=== PATIENT | female | born 1990 | race Caucasian/White ===

== ENCOUNTER 2020-03-07 12:22 | Emergency (ER) | payer BC ==
[2020-03-07] MEDS ORDERED: Sodium Chloride 0.9% 1,000 ML IV ONE (12:28)
[2020-03-07] MEDS ORDERED: Ondansetron 4 MG/2 ML SDV IVPUSH ONE (13:01)
--- NOTE | 2020-03-07 13:13 | EDM.PDOC ---
ED HPI GENERAL MEDICAL PROBLEM - General Chief Complaint: NEEDLE STRAIGHTENER Problem Stated Complaint: NAUSEOUS CAN'T KEEP FOOD DOWN Time Seen by Provider: 03/07/20 12:26 Source of Information: Reports: Patient History Limitations: Reports: No Limitations - History of Present Illness INITIAL COMMENTS - FREE TEXT/NARRATIVE: HISTORY AND PHYSICAL: History of present illness: Patient is a 29-year-old female who presents to the emergency room with complaints of nausea and vomiting in first trimester . Patient states over the past several days she has not been able to keep any food or liquids down and is concerned she may be dehydrated. She did call her NEEDLE STRAIGHTENER who recommended she come into the emergency room for evaluation and treatment. She is a 2, para 0 -previous miscarriage at 9 weeks gestation. Patient denies any fever, chills, headache, change in vision, syncope or near syncope. Denies any chest pain, back pain, shortness of breath or cough. Denies any abdo michael pain, diarrhea, constipation or dysuria. Denies any vaginal bleeding, discharge or concerns of STIs. Has not noted any blood in urine or stool. Patient has been eating and drinking appropriately. Patient does report she has a history of a "vomiting issue" and has seen a GI specialist in the past. Reports she has taken many antinausea medications without much relief and "the only thing that is worked for me in the past is medical marijuana". At this time she is not taking/smoking the marijuana and would prefer to retry some of the safe options. Review of systems: As per history of present illness and below otherwise all systems reviewed and negative. Past medical history: As per history of present illness and as reviewed below otherwise noncontributory. Surgical history: As per history of present illness and as reviewed below otherwise noncontributory. Social history: See social history for further information Family history: As per history of present illness and as reviewed below otherwise noncontributory. Physical exam: General: Well developed and well nourished. Alert and orientated x 3. Nontoxic in appearance and in no acute distress. Vital signs are stable and have been reviewed by me. Nursing notes were reviewed. HEENT: Atraumatic, normocephalic, pupils equal and reactive bilaterally, negative for conjunctival pallor or scleral icterus, mucous membranes moist, TMs normal bilaterally, throat clear, neck supple, nontender, trachea midline. No drooling or trismus noted. No meningeal signs. No hot potato voice noted. Lungs: Clear to auscultation, breath sounds equal bilaterally, chest nontender. Normal work of breathing, no accessory muscles used. Heart: S1S2, regular rate and rhythm without overt murmur Abdomen: Soft, nondistended, nontender. Negative for masses or hepatosplenomegaly. Negative for costovertebral tenderness. Pelvis: Stable nontender. Skin: Intact, warm, dry. No lesions or rashes noted. Hematologic: No petechiae or purpra. Mucosa appropriate color and normal nail bed color and refill. Extremities: Atraumatic, moves all extremities per self without difficulty or deficits, negative for cords or calf pain. Neurovascular unremarkable. Neuro: Awake, alert, oriented. Cranial nerves II through XII unremarkable. Cerebellum unremarkable. Motor and sensory unremarkable throughout. Exam nonfocal. Psychiatric: Mood and affect are appropriate. Normal thought process. Answering questions appropriately. Notes: Ultrasound shows a single live IUP with gestational age of 9 weeks 1 day. No free fluid in the pelvis. Patient does have a leukocytosis without source. Patient denies having any abdominal pain, flank pain or pelvic discomfort. My physical exam is within normal limits. She is aware of having an elevated white count and to continue monitoring for any symptoms that would prompt her to return for further investigation of this. Patient has been able to keep down fluids and would like a prescription for the ODT Zofran for home. She was supposed to see her NEEDLE STRAIGHTENER today but they moved her appointment till Tuesday, she will be reevaluated at that time. The patient is stable for discharge, counseling was provided and we discussed in great detail signs and symptoms that would prompt them to return to the Emergency Department. Medication, follow up and supportive care measures were reviewed and discussed. Voices understanding and is agreeable to plan of care. Denies any further questions or concerns at this time. Diagnostics: CBC, CMP, UA, quantitative hCG, OB ultrasound Therapeutics: IV fluid, Zofran Prescription: Zofran Impression: Hyperemesis Plan: 1. Please start and/or continue to take your vitamin with folic acid once daily. 2. You can use the Zofran as needed for nausea management. 3. Tylenol as needed for pain management. 4. Follow up with your NEEDLE STRAIGHTENER in the next 1-2 days. Return to the ED as needed and as discussed. Definitive disposition and diagnosis as appropriate pending reevaluation and review of above. - Related Data Allergies Allergy/AdvReac Type Severity Reaction Status Date / Time No Known Allergies Allergy Verified 03/07/20 12:57 Home Meds: Home Meds Doxylamine Succinate [Unisom] 25 mg PO DAILY 03/07/20 [History] Ondansetron [Zofran ODT] 4 mg PO Q6H PRN #30 tab.dis 03/07/20 [Rx] Pnv No.95/Ferrous Fum/Folic AC [ Caplet] 1 tab PO DAILY 03/07/20 [History] Vitamin B6-pyridOXINE 100 mg PO DAILY 03/07/20 [History] Past Medical History Other NEEDLE STRAIGHTENER History: miscarriage, beast augmentation Psychiatric History: Reports: Anxiety, Depression - Past Surgical History HEENT Surgical History: Reports: Other (See Below) Other HEENT Surgeries/Procedures: wisdom teeth removal Social & Family History - Family History Family Medical History: No Pertinent Family History - Caffeine Use Caffeine Use: Reports: Tea - Recreational Drug Use Recreational Drug Type: Reports: Other (see below) Other Recreational Drug Type: THC ED ROS GENERAL - Review of Systems Review Of Systems: Comprehensive ROS is negative, except as noted in HPI. ED EXAM - Physical Exam Exam: See Below (See dictation) Course - Vital Signs Last Recorded V/S: Last Vital Signs Temp 98.1 F 03/07/20 13:01 Pulse 90 03/07/20 13:01 Resp 18 03/07/20 13:01 BP 129/75 03/07/20 13:01 Pulse Ox 100 03/07/20 13:01 - Orders/Labs/Meds Orders: Active Orders 24 hr Category Date Time Status COMPREHENSIVE METABOLIC PN,CMP [CHEM] Stat Lab 03/07/20 13:24 Received HCG QUANTITATIVE [CHEM] Stat Lab 03/07/20 13:24 Received Labs: Laboratory Tests 03/07/20 03/07/20 03/07/20 Range/Units 12:50 13:24 14:00 WBC 16.42 H (4.0-11.0) K/uL RBC 4.66 (4.30-5.90) M/uL Hgb 14.5 (12.0-16.0) g/dL Hct 42.9 (36.0-46.0) % MCV 92.1 (80.0-98.0) fL MCH 31.1 (27.0-32.0) pg MCHC 33.8 (31.0-37.0) g/dL RDW Std Deviation 48.7 (28.0-62.0) fl RDW Coeff of Solo 15 (11.0-15.0) % Plt Count 308 (150-400) K/uL MPV 8.80 (7.40-12.00) fL Neut % (Auto) 89.4 H (48.0-80.0) % Lymph % (Auto) 7.1 L (16.0-40.0) % Collier % (Auto) 3.4 (0.0-15.0) % Eos % (Auto) 0.0 (0.0-7.0) % Baso % (Auto) 0.1 (0.0-1.5) % Neut # (Auto) 14.7 H (1.4-5.7) K/uL Lymph # (Auto) 1.2 (0.6-2.4) K/uL Collier # (Auto) 0.6 (0.0-0.8) K/uL Eos # (Auto) 0.0 (0.0-0.7) K/uL Baso # (Auto) 0.0 (0.0-0.1) K/uL Nucleated RBC % 0.0 /100WBC Nucleated RBCs # 0 K/uL Lactate 1.7 (0.20-2.00) mmol/L Urine Color YELLOW Urine Appearance CLEAR Urine pH 7.0 (5.0-8.0) Ur Specific Penfield 1.015 (1.001-1.035) Urine Protein NEGATIVE (NEGATIVE) mg/dL Urine Glucose (UA) NEGATIVE (NEGATIVE) mg/dL Urine Ketones >=80 (NEGATIVE) mg/dL Urine Occult Blood SMALL H (NEGATIVE) Urine Nitrite NEGATIVE (NEGATIVE) Urine Bilirubin NEGATIVE (NEGATIVE) Urine Urobilinogen 0.2 (<2.0) EU/dL Ur Leukocyte Esterase NEGATIVE (NEGATIVE) Urine RBC 1-3 (0-2/HPF) Urine WBC 0-1 (0-5/HPF) Ur Epithelial Cells RARE (NONE-FEW) Urine Bacteria FEW (NEGATIVE) Meds: Medications Discontinued Medications Generic Name Dose Route Start Last Admin Trade Name Freq PRN Reason Stop Dose Admin Sodium Chloride 1,000 mls @ 999 mls/hr 03/07/20 12:28 03/07/20 13:23 Normal Saline IV 03/07/20 13:28 999 mls/hr STAT ONE Administration Ondansetron HCl 4 mg 03/07/20 13:01 03/07/20 13:23 Zofran IVPUSH 03/07/20 13:02 4 mg ONETIME ONE Administration Departure - Departure Time of Disposition: 14:20 Disposition: Home, Self-Care 01 Clinical Impression: Hyperemesis gravidarum - Discharge Information Prescriptions: Ondansetron [Zofran ODT] 4 mg PO Q6H PRN #30 tab.dis PRN Reason: Nausea Instructions: Morning Sickness, [id number] Referrals: Cristina Fatima MD [Primary Care Provider] - Forms: ED Department Discharge Additional Instructions: The following information is given to patients seen in the emergency department who are being discharged to home. This information is to outline your options for follow-up care. We provide all patients seen in our emergency department with a follow-up referral. The need for follow-up, as well as the timing and circumstances, are variable depending upon the specifics of your emergency department visit. If you don't have a primary care physician on staff, we will provide you with a referral. We always advise you to contact your personal physician following an emergency department visit to inform them of the circumstance of the visit and f or follow-up with them and/or the need for any referrals to a consulting specialist. The emergency department will also refer you to a specialist when appropriate. This referral assures that you have the opportunity for follow-up care with a specialist. All of these measure are taken in an effort to provide you with optimal care, which includes your follow-up. Under all circumstances we always encourage you to contact your private physician who remains a resource for coordinating your care. When calling for follow-up care, please make the office aware that this follow-up is from your recent emergency room visit. If for any reason you are refused follow-up, please contact the [facility] Emergency Department at and asked to speak to the emergency department charge nurse. [facility] Primary [facility] [address] [place] [address] [facility] [address] [place] [address] Thank you for choosing the [facility] emergency department in [place] for your medical needs today. It was a pleasure caring for you. Today you were seen in the emergency department for nausea and vomiting in . 1. Please start and/or continue to take your vitamin with folic acid once daily. 2. You can use the Zofran as needed for nausea management. 3. Tylenol as needed for pain management. 4. Follow up with your NEEDLE STRAIGHTENER in the next few days. Return to the ED as needed and as discussed. Sepsis Event Note (ED) - Evaluation Sepsis Screening Result: No Definite Risk - Focused Exam Vital Signs: Vital Signs Temp Pulse Resp BP Pulse Ox 03/07/20 13:01 98.1 F 90 18 129/75 100 - My Orders Last 24 Hours: My Active Orders 03/07/20 13:24 COMPREHENSIVE METABOLIC PN,CMP [CHEM] Stat HCG QUANTITATIVE [CHEM] Stat - Assessment/Plan Last 24 Hours: My Active Orders 03/07/20 13:24 COMPREHENSIVE METABOLIC PN,CMP [CHEM] Stat HCG QUANTITATIVE [CHEM] Stat
--- NOTE | 2020-03-07 13:19 | US ---
HISTORY: Vomiting. Early . TECHNIQUE: Ultrasound of the pelvis using transabdominal technique. COMPARISON: None. FINDINGS: Single intrauterine gestational sac. Mean gestational sac diameter of 4.1 cm corresponds to estimated gestational age 9 weeks 6 days. pole is present. Terlton-rump length 24 mm corresponds to estimated gestational age 9 weeks 1 day. cardiac activity is present with heart rate 172 beats per minute. No perigestational fluid collection. Right ovary measures 3.4 x 2 x 2.9 cm. Normal appearance of the right ovary. Blood flow present the right ovary. Left ovary measures 1.2 x 2 x 1.9 cm. Normal appearance of the left ovary. Blood flow present in the left ovary. No free fluid in the pelvis. IMPRESSION: Single live intrauterine gestation with estimated gestational age of 9 weeks 1 day. Dictated by Don Little MD @ Mar 07 2020 1:11PM Signed by Dr. Don Little @ Mar 07 2020 1:18PM
[2020-03-07 14:20] LABS: BLOOD UREA NITROGEN,BUN 6 mg/dL (7.0-18.0); CARBON DIOXIDE,CO2 22.6 mmol/L (21.0-32.0); CHLORIDE,CL 99 mmol/L (98-107); GLUCOSE RANDOM 86 mg/dL (74-106); POTASSIUM,K 3.4 mmol/L (3.5-5.1); SODIUM,NA 135 mmol/L (136-145)
== END 2020-03-07 15:08 | disposition home or self-care (01) ==
LOC: MW.ED 12:22
DX: O21.0 Mild hyperemesis gravidarum (principal); O99.111 Other diseases of the blood and blood-forming organs and certain disorders involving the immune mechanism complicating pregnancy, first trimester; D72.829 Elevated white blood cell count, unspecified; Z3A.09 9 weeks gestation of pregnancy
CPT/HCPCS: 36415; 76801; 80053; 81001; 83605; 84702; 85025; 96374; 99284; J2405; J7030; 99283

== ENCOUNTER 2020-10-13 05:14 | Inpatient (IN) | payer BC ==
[2020-10-13] MEDS ORDERED: Butorphanol 1 MG/ML SDV IVPUSH PRN (05:42)
[2020-10-13] MEDS ORDERED: Water For Irrigation,Sterile 1,000 ML Container IRR PRN (05:42)
[2020-10-13] MEDS ORDERED: Sodium Chloride 0.9% 10 ML SDV IV PRN (05:42)
[2020-10-13] MEDS ORDERED: Sodium Chloride 0.9% 10 ML Syringe FLUSH PRN (05:42)
[2020-10-13] MEDS ORDERED: Sodium Chloride 0.9% 2.5 ML Syringe FLUSH PRN (05:42)
[2020-10-13] MEDS ORDERED: Lidocaine 1% 50 ML MDV INJECT PRN (05:42)
[2020-10-13] MEDS ORDERED: Methylergonovine 0.2 MG/1 ML Amp IM PRN (05:42)
[2020-10-13] MEDS ORDERED: Misoprostol 200 MCG Tab PO PRN (05:42)
[2020-10-13] MEDS ORDERED: Carboprost Tromethamine 250 MCG/1 ML Amp IM PRN (05:42)
[2020-10-13] MEDS ORDERED: Tranexamic Acid 1,000 MG in Sodium Chloride 0.9% 100 ML IV PRN (05:42)
[2020-10-13] MEDS ORDERED: Nalbuphine 10 MG/1 ML Vial IVPUSH PRN (05:42)
[2020-10-13] MEDS ORDERED: Oxytocin/0.9 % Sodium Chloride 30 UNIT/500 ML BAG IV SCH (05:45)
[2020-10-13] MEDS ORDERED: Lactated Ringers 1,000 ML IV SCH (05:45)
--- NOTE | 2020-10-13 07:05 | PCM.LDHP ---
L&D History of Present Illness - General Date of Service: 10/13/20 Admit Problem/Dx: Patient Status Order with Admit Dx/Problem 10/13/20 05:42 Patient Status [ADT] Routine Admission Diagnosis/Problem Admission Diagnosis/Problem Source of Information: Patient - History of Present Illness Introduction:: 30yo at 40w3d presenting with labor and SROM. Patient had gush of clear fluid around midnight and started having regular contractions. She is tolerating contractions well. GBS negative. was complicated with GDMA1 that is well controlled with diet. She had serial growth US with appropriate growth, last US measured 48th percentile. Pain Score: 8 - Related Data Allergies/Adverse Reactions: Allergies Allergy/AdvReac Type Severity Reaction Status Date / Time No Known Allergies Allergy Verified 03/07/20 12:57 Home Medications: Home Meds Doxylamine Succinate [Unisom] 25 mg PO DAILY 03/07/20 [History] Ondansetron [Zofran ODT] 4 mg PO Q6H PRN #30 tab.dis 03/07/20 [Rx] Pnv No.95/Ferrous Fum/Folic AC [ Caplet] 1 tab PO DAILY 03/07/20 [History] Vitamin B6-pyridOXINE 100 mg PO DAILY 03/07/20 [History] Past Medical History Other OB/BYN History: miscarriage, breast augmentation Psychiatric History: Reports: Anxiety, Depression Immunologic History: Reports: None - Past Surgical History HEENT Surgical History: Reports: Other (See Below) Other HEENT Surgeries/Procedures: wisdom teeth removal Social & Family History - Family History Family Medical History: No Pertinent Family History - Tobacco Use Tobacco Use Status *Q: Never Tobacco User - Caffeine Use Caffeine Use: Reports: None - Recreational Drug Use Drug Use in Last 12 Months: No H&P Review of Systems - Review of Systems: Review Of Systems: See Below General: Reports: No Symptoms HEENT: Reports: No Symptoms Pulmonary: Reports: No Symptoms Cardiovascular: Reports: No Symptoms Gastrointestinal: Reports: Other (contractions) Genitourinary: Reports: Other (membrane ruptured) Musculoskeletal: Reports: No Symptoms Skin: Reports: No Symptoms Psychiatric: Reports: No Symptoms Neurological: Reports: No Symptoms Hematologic/Lymphatic: Reports: No Symptoms Immunologic: Reports: No Symptoms L&D Exam - Exam Exam: See Below (+ accels, no decels) - Vital Signs Weight: 190 lb - OB Specific Contraction Frequency (min): 2-3min Contraction Intensity: Moderate to Strong Movement: Active Heart Tones: Present Heart Tones per Min: 150 Heart Rate (FHR) Variability: Moderate (6-25 bmp) - Exam General: Alert, Oriented, Cooperative HEENT: Conjunctiva Clear, EACs Clear, EOMI Neck: Supple, Trachea Midline Lungs: Normal Respiratory Effort GI/Abdominal Exam: Soft, Non-Tender, No Distention Genitourinary: Normal external exam, Cervical dilitation (8cm dilated per patient nurse) Back Exam: Normal Inspection, Full Range of Motion Extremities: Normal Inspection, Normal Range of Motion, Non-Tender, No Pedal Edema Skin: Warm, Dry, Intact Neurological: Cranial Nerves Intact Psychiatric: Alert, Normal Affect, Normal Mood - Patient Data Lab Results Last 24 hrs: Laboratory Results - last 24 hr 10/13/20 10/13/20 10/13/20 Range/Units 05:45 05:45 05:45 WBC 12.13 H (4.0-11.0) K/uL RBC 4.27 L (4.30-5.90) M/uL Hgb 13.0 (12.0-16.0) g/dL Hct 38.5 (36.0-46.0) % MCV 90.2 (80.0-98.0) fL MCH 30.4 (27.0-32.0) pg MCHC 33.8 (31.0-37.0) g/dL RDW Std Deviation 46.7 (28.0-62.0) fl RDW Coeff of Solo 14 (11.0-15.0) % Plt Count 230 (150-400) K/uL MPV 10.90 (7.40-12.00) fL Nucleated RBC % 0.0 /100WBC Nucleated RBCs # 0 K/uL Glucose 85 (74-106) mg/dL SARS-CoV-2 RNA (SELMA) NEGATIVE (NEGATIVE) Result Diagrams: 10/13/20 05:45 - Problem List (1) Active labor at term SNOMED Code(s): 18236118 ICD Code: [id number] - Status: Acute Current Visit: Yes Problem List Initiated/Reviewed/Updated: Yes Orders Last 24hrs: Active Orders 24 hr Category Date Time Status Patient Status [ADT] Routine ADT 10/13/20 05:42 Active Heart Tones [RC] CONTINUOUS Care 10/13/20 05:42 Active Non Stress Test [RC] PER UNIT ROUTINE Care 10/13/20 05:42 Active May Shower [RC] ASDIRECTED Care 10/13/20 05:42 Active Notify Provider [RC] PRN Care 10/13/20 05:42 Active Up ad Carline [RC] ASDIRECTED Care 10/13/20 05:42 Active Vaginal Exam [RC] PRN Care 10/13/20 05:42 Active Vital Signs [RC] PER UNIT ROUTINE Care 10/13/20 05:42 Active RPR (SYPHILIS SERO) W/ RFLX [REF] Routine Lab 10/13/20 05:45 Received TYPE AND SCREEN [BBK] Routine Lab 10/13/20 05:45 Received Butorphanol [Stadol] Med 10/13/20 05:42 Active 1 mg IVPUSH Q1H PRN Carboprost Tromethamine [Hemabate DS] Med 10/13/20 05:42 Active 250 mcg IM ASDIRECTED PRN Lactated Ringers [Ringers, Lactated] 1,000 ml Med 10/13/20 05:45 Active IV ASDIRECTED Lidocaine 1% [Xylocaine 1%] Med 10/13/20 05:42 Active 50 ml INJECT ONETIME PRN Methylergonovine [Methergine] Med 10/13/20 05:42 Active 0.2 mg IM ASDIRECTED PRN Nalbuphine [Nubain] Med 10/13/20 05:42 Active 10 mg IVPUSH Q1H PRN Oxytocin/0.9 % Sodium Chloride [Oxytocin 30 Unit/500 ML Med 10/13/20 05:45 Active -NS] 30 unit in 500 ml IV TITRATE Sodium Chloride 0.9% [Normal Saline] Med 10/13/20 05:42 Active 10 ml IV ASDIRECTED PRN Sodium Chloride 0.9% [Saline Flush] Med 10/13/20 05:42 Active 10 ml FLUSH ASDIRECTED PRN Sodium Chloride 0.9% [Saline Flush] Med 10/13/20 05:42 Active 2.5 ml FLUSH ASDIRECTED PRN Tranexamic Acid [Cyklokapron] 1,000 mg Med 10/13/20 05:42 Active Sodium Chloride 0.9% [Normal Saline] 100 ml IV ONETIME Water For Irrigation,Sterile [Sterile Water for Med 10/13/20 05:42 Active Irrigation] 1,000 ml IRR ASDIRECTED PRN miSOPROStoL [Cytotec] Med 10/13/20 05:42 Active 200 mcg PO ONETIME PRN Scalp Electrode [WOMSER] Per Unit Routine Oth 10/13/20 05:42 Ordered Peripheral IV Insertion Adult [OM.PC] Routine Oth 10/13/20 05:42 Ordered Resuscitation Status Routine Resus Stat 10/13/20 05:42 Ordered Medication Orders Butorphanol Tartrate (Butorphanol 1 Mg/Ml Sdv) 1 mg IVPUSH Q1H PRN PRN Reason: Pain (severe 7-10) Carboprost Tromethamine (Carboprost Tromethamine 250 Mcg/1 Ml Amp) 250 mcg IM ASDIRECTED PRN PRN Reason: Post Hemorrhage Oxytocin/Sodium Chloride (Oxytocin 30 Unit/500 Ml-Ns) 30 unit in 500 mls @ 999 mls/hr IV TITRATE [facility] Tranexamic Acid 1,000 mg/ (Sodium Chloride) 110 mls @ 660 mls/hr IV ONETIME PRN PRN Reason: Bleeding Lactated Ringer's (Ringers, Lactated) 1,000 mls @ 150 mls/hr IV ASDIRECTED ASHLEY Last Admin: 10/13/20 06:25 Dose: 150 mls/hr Documented by: ISABEL Lidocaine HCl (Lidocaine 1% 50 Ml Mdv) 50 ml INJECT ONETIME PRN PRN Reason: Laceration repair Methylergonovine Maleate (Methylergonovine 0.2 Mg/1 Ml Amp) 0.2 mg IM ASDIRECTED PRN PRN Reason: Post Hemorrhage Misoprostol (Misoprostol 200 Mcg Tab) 200 mcg PO ONETIME PRN PRN Reason: Post Hemorrhage Nalbuphine HCl (Nalbuphine 10 Mg/1 Ml Vial) 10 mg IVPUSH Q1H PRN PRN Reason: Pain (severe 7-10) Last Admin: 10/13/20 06:25 Dose: 10 mg Documented by: ISABEL Sodium Chloride (Sodium Chloride 0.9% 10 Ml Syringe) 10 ml FLUSH ASDIRECTED PRN PRN Reason: Keep Vein Open Sodium Chloride (Sodium Chloride 0.9% 2.5 Ml Syringe) 2.5 ml FLUSH ASDIRECTED PRN PRN Reason: Keep Vein Open Sodium Chloride (Sodium Chloride 0.9% 10 Ml Sdv) 10 ml IV ASDIRECTED PRN PRN Reason: IV Use Sterile Water (Water For Irrigation,Sterile 1,000 Ml Container) 1,000 ml IRR ASDIRECTED PRN PRN Reason: delivery Assessment/Plan Comment:: 30yo at 40w3d presenting with active labor. Reassuring maternal and status. - admission labs, CBC, RPR, T&S, COVID19 test - GDMA1, blood glucose sent - category 1 tracing - GBS negative - received nubain for pain, declines epidural Anticipate vaginal delivery.
[2020-10-13] MEDS ORDERED: Docusate Sodium 100 MG Cap PO PRN (09:06)
[2020-10-13] MEDS ORDERED: Witch Hazel Medicated Pads 40/Jar TOP PRN (09:06)
[2020-10-13] MEDS ORDERED: Bisacodyl 10 MG Supp RECTAL PRN (09:06)
[2020-10-13] MEDS ORDERED: Measles, Mumps & Rubella Vaccine 0.5 ML SDV SUBCUT ONE (09:06)
[2020-10-13] MEDS ORDERED: oxyCODONE 5 MG Tab PO PRN (09:06)
[2020-10-13] MEDS ORDERED: Lanolin 100% Cream 7 GM Tube TOP PRN (09:06)
[2020-10-13] MEDS ORDERED: Benzocaine/Menthol 20%-0.5% Spray 78 GM Cannister TOP PRN (09:06)
--- NOTE | 2020-10-13 09:12 | PCM.DEL ---
L & D Note - General Info Date of Service: 10/13/20 Mother's Due Date: 10/10/20 - Delivery Note Labor: Spontaneous Delivery Outcome: Livebirth Infant Delivery Method: Spontaneous Vaginal Delivery-Single Presentation: Vertex Nuchal Cord: None Anesthesia Type: Local Anesthetic: Lidocaine (Xylocaine) 1% Plain Amniotic Fluid Description: Clear Episiotomy Type: None Laceration: 2nd Degree, Periurethral (bilateral) Suture type: Vicryl Suture size: 2-0 Placenta: Intact, Spontaneous Cord: 3 Vessels Estimated Blood Loss: 300 Resuscitation Needed: No Score 1 min: 8 Score 5 min: 9 Delivery Comments (Free Text/Narrative):: Live male infant - General Info Date of Service: 10/13/20 - Patient Data Weight - Most Recent: 86.183 kg Lab Results Last 24 Hours: Laboratory Results - last 24 hr 10/13/20 10/13/20 10/13/20 Range/Units 05:45 05:45 05:45 WBC 12.13 H (4.0-11.0) K/uL RBC 4.27 L (4.30-5.90) M/uL Hgb 13.0 (12.0-16.0) g/dL Hct 38.5 (36.0-46.0) % MCV 90.2 (80.0-98.0) fL MCH 30.4 (27.0-32.0) pg MCHC 33.8 (31.0-37.0) g/dL RDW Std Deviation 46.7 (28.0-62.0) fl RDW Coeff of Solo 14 (11.0-15.0) % Plt Count 230 (150-400) K/uL MPV 10.90 (7.40-12.00) fL Nucleated RBC % 0.0 /100WBC Nucleated RBCs # 0 K/uL Glucose (74-106) mg/dL SARS-CoV-2 RNA ([facility]) NEGATIVE (NEGATIVE) Blood Type O POSITIVE Antibody Screen NEGATIVE 10/13/20 Range/Units 05:45 WBC (4.0-11.0) K/uL RBC (4.30-5.90) M/uL Hgb (12.0-16.0) g/dL Hct (36.0-46.0) % MCV (80.0-98.0) fL MCH (27.0-32.0) pg MCHC (31.0-37.0) g/dL RDW Std Deviation (28.0-62.0) fl RDW Coeff of Solo (11.0-15.0) % Plt Count (150-400) K/uL MPV (7.40-12.00) fL Nucleated RBC % /100WBC Nucleated RBCs # K/uL Glucose 85 (74-106) mg/dL SARS-CoV-2 RNA ([facility]) (NEGATIVE) Blood Type Antibody Screen Med Orders - Current: Current Medications Acetaminophen (Acetaminophen 500 Mg Tab) 1,000 mg PO Q6H PRN PRN Reason: Pain (mild 1-3) Benzocaine/Menthol (Benzocaine/Menthol 20%-0.5% [place] 78 Gm Cannister) 78 gm TOP ASDIRECTED PRN PRN Reason: Perineal Comfort Measure Bisacodyl (Bisacodyl 10 Mg Supp) 10 mg RECTAL ONETIME PRN PRN Reason: Constipation Butorphanol Tartrate (Butorphanol 1 Mg/Ml Sdv) 1 mg IVPUSH Q1H PRN PRN Reason: Pain (severe 7-10) Carboprost Tromethamine (Carboprost Tromethamine 250 Mcg/1 Ml Amp) 250 mcg IM ASDIRECTED PRN PRN Reason: Post Hemorrhage Docusate Sodium (Docusate Sodium 100 Mg Cap) 100 mg PO Q12H PRN PRN Reason: Constipation Emollient Ointment (Lanolin 100% Cream 7 Gm Tube) 0 gm TOP ASDIRECTED PRN PRN Reason: Sore Nipples Oxytocin/Sodium Chloride (Oxytocin 30 Unit/500 Ml-Ns) 30 unit in 500 mls @ 999 mls/hr IV TITRATE [facility] Last Admin: 10/13/20 08:43 Dose: 999 mls/hr Documented by: Tranexamic Acid 1,000 mg/ (Sodium Chloride) 110 mls @ 660 mls/hr IV ONETIME PRN PRN Reason: Bleeding Lactated Ringer's (Ringers, Lactated) 1,000 mls @ 150 mls/hr IV ASDIRECTED [facility] Last Admin: 10/13/20 06:25 Dose: 150 mls/hr Documented by: Ibuprofen (Ibuprofen 800 Mg Tab) 800 mg PO Q8H PRN PRN Reason: Pain (mild 1-3) Lidocaine HCl (Lidocaine 1% 50 Ml Mdv) 50 ml INJECT ONETIME PRN PRN Reason: Laceration repair Last Admin: 10/13/20 08:45 Dose: 50 ml Documented by: Measles/Mumps/Rubella Vaccine Live (Measles, Mumps & Rubella Vaccine 0.5 Ml Sdv) 0.5 ml SUBCUT .ONCE ONE Stop: 10/13/20 09:07 Methylergonovine Maleate (Methylergonovine 0.2 Mg/1 Ml Amp) 0.2 mg IM ASDIRECTED PRN PRN Reason: Post Hemorrhage Misoprostol (Misoprostol 200 Mcg Tab) 200 mcg PO ONETIME PRN PRN Reason: Post Hemorrhage Nalbuphine HCl (Nalbuphine 10 Mg/1 Ml Vial) 10 mg IVPUSH Q1H PRN PRN Reason: Pain (severe 7-10) Last Admin: 10/13/20 06:25 Dose: 10 mg Documented by: Oxycodone HCl (Oxycodone 5 Mg Tab) 5 mg PO Q2H PRN PRN Reason: Pain (severe 7-10) Sodium Chloride (Sodium Chloride 0.9% 10 Ml Syringe) 10 ml FLUSH ASDIRECTED PRN PRN Reason: Keep Vein Open Sodium Chloride (Sodium Chloride 0.9% 2.5 Ml Syringe) 2.5 ml FLUSH ASDIRECTED PRN PRN Reason: Keep Vein Open Sodium Chloride (Sodium Chloride 0.9% 10 Ml Sdv) 10 ml IV ASDIRECTED PRN PRN Reason: IV Use Sterile Water (Water For Irrigation,Sterile 1,000 Ml Container) 1,000 ml IRR ASDIRECTED PRN PRN Reason: delivery Witch Ana Lilia (Witch Ana Lilia Medicated Pads 40/Jar) 1 pad TOP ASDIRECTED PRN PRN Reason: comfort care - Problem List & Annotations (1) Vaginal delivery SNOMED Code(s): 529462628 Code(s): O80 - ENCOUNTER FOR FULL-TERM UNCOMPLICATED DELIVERY Status: Acute Current Visit: Yes (2) Gestational diabetes mellitus, diet-controlled SNOMED Code(s): 76338290, 307851875, 349937024 Code(s): O24.410 - GESTATIONAL DIABETES MELLITUS IN , DIET CONTROLLED Status: Acute Current Visit: Yes - Problem List Review Problem List Initiated/Reviewed/Updated: Yes - My Orders Last 24 Hours: My Active Orders 10/13/20 09:06 Patient Status [ADT] Routine May Shower [RC] ASDIRECTED Notify Provider Vital Signs [RC] ASDIRECTED Up ad Carline [RC] ASDIRECTED Vital Signs [RC] PER UNIT ROUTINE Acetaminophen [Tylenol Extra Strength] 1,000 mg PO Q6H PRN Benzocaine/Menthol [Dermoplast Pain Relief 20%-0.5% [place]] 78 gm TOP ASDIRECTED PRN Docusate Sodium [Colace] 100 mg PO Q12H PRN Ibuprofen [Motrin] 800 mg PO Q8H PRN Lanolin [Lansinoh HPA] See Dose Instructions TOP ASDIRECTED PRN Measles, Mumps & Rubella [M-M-R II Vaccine] 0.5 ml SUBCUT .ONCE ONE bisacodyL [Dulcolax] 10 mg RECTAL ONETIME PRN oxyCODONE 5 mg PO Q2H PRN witch Ana Lilia [Tucks] 1 pad TOP ASDIRECTED PRN Assess Lochia [WOMSER] Per Unit Routine Assess Uterine Involution [WOMSER] Per Unit Routine Breast Pump [WOMSER] Per Unit Routine Ice Therapy [OM.PC] Per Unit Routine Perineal Care [OM.PC] Per Unit Routine Peripheral IV Discontinue [OM.PC] Routine Sitz Bath [OM.PC] Per Unit Routine 10/13/20 09:07 Cooling Warming Measures [RC] ASDIRECTED 10/13/20 Lunch Regular Diet [DIET] 10/14/20 05:11 HEMOGLOBIN/HEMATOCRIT,HH [HEME] Timed - Assessment Assessment:: 30yo s/p at 40w3d - Plan Plan:: Admit to unit for routine care. GDMA1, will get 2-hour GTT . Rh positive, Rubella non-immune (MMR ordered), GBS negative. Plan for circumcision tomorrow by Dr. Nicole.
--- NOTE | 2020-10-13 10:47 | OR ---
SURGEON: Cristina Fatima MD DATE OF PROCEDURE: 10/13/2020 PREOPERATIVE DIAGNOSES: 1. 30-year-old G2, P0-0-1-0 at 40 weeks and 3 days' gestation. 2. Labor and spontaneous rupture of membranes. 3. Gestational diabetes, diet controlled. 4. Group B streptococcus negative. POSTOPERATIVE DIAGNOSES: 1. 30-year-old G2, P1-0-1-0 at 40 weeks and 3 days' gestation. 2. Labor and spontaneous rupture of membranes. 3. Gestational diabetes, diet controlled. 4. Group B streptococcus negative. PROCEDURE: Spontaneous vaginal delivery and repair of 2nd-degree perineal laceration. PRIMARY SURGEON: Cristina Fatima MD ANESTHESIA: Local lidocaine. ESTIMATED BLOOD LOSS: 300 mL. FINDINGS: Live male infant in cephalic presentation. score of 8 and 9 at one and five minutes respectively. Weight pending. Placenta intact with 3-vessel cord. Second-degree perineal and bilateral periurethral lacerations. INDICATIONS: This is a 30-year-old -0-1-0, who presented at 40 weeks and 3 days' gestation, complaining of rupture of membranes and contractions. Upon presentation, rupture of membranes was confirmed, and she was found to be 8 cm dilated. She was admitted to Labor and Delivery, and she progressed to complete cervical dilation and began pushing. DESCRIPTION OF PROCEDURE: I arrived to the room with the cervix completely dilated and the infant's head at +4 station. Over the next 2 contractions, the patient pushed and delivered a live male . The head was delivered, followed quickly by the shoulders and remainder of the body. After approximately 60 seconds, the cord was clamped and cut. The placenta then delivered intact and there was 3-vessel cord via the Rushing-Llanos maneuver. The perineum was inspected and a 2nd-degree perineal and bilateral periurethral lacerations were noted. The 2nd-degree perineal was infiltrated with lidocaine and repaired to anatomy and hemostasis with 2-0 Vicryl. The periurethral lacerations were hemostatic and repaired. The fundus was firm below the umbilicus. The patient and tolerated the delivery well. [id number] / MODL /[id number] [facility]
[2020-10-13] MEDS: Ibuprofen 800 MG Tab PO PRN ×2 (14:05→22:10)
[2020-10-13] MEDS: Acetaminophen 500 MG Tab PO PRN (20:00)
[2020-10-14] MEDS: Ibuprofen 800 MG Tab PO PRN ×2 (04:57→16:38)
[2020-10-14] MEDS: Acetaminophen 500 MG Tab PO PRN (07:29)
--- NOTE | 2020-10-14 08:32 | PCM.PNPP ---
- General Info Date of Service: 10/14/20 Subjective Update: Doing well this morning. Lochia minimal. Has been breast feeding and pumping. Functional Status: Reports: Pain Controlled, Tolerating Diet, Ambulating, Urinating - Review of Systems General: Reports: No Symptoms HEENT: Reports: No Symptoms Pulmonary: Reports: No Symptoms Cardiovascular: Reports: No Symptoms Gastrointestinal: Reports: No Symptoms Genitourinary: Reports: No Symptoms Musculoskeletal: Reports: No Symptoms Skin: Reports: No Symptoms Neurological: Reports: No Symptoms Psychiatric: Reports: No Symptoms - Patient Data Vital Signs - Most Recent: Last Vital Signs Temp 36.8 C 10/14/20 07:30 Pulse 91 10/14/20 07:30 Resp 16 10/14/20 07:30 BP 118/64 10/14/20 07:30 Pulse Ox 97 10/14/20 07:30 Weight - Most Recent: 86.183 kg Lab Results - Last 24 Hours: Laboratory Results - last 24 hr 10/14/20 Range/Units 05:47 Hgb 11.1 L (12.0-16.0) g/dL Hct 33.1 L (36.0-46.0) % Med Orders - Current: Current Medications Acetaminophen (Acetaminophen 500 Mg Tab) 1,000 mg PO Q6H PRN PRN Reason: Pain (mild 1-3) Last Admin: 10/14/20 07:29 Dose: 1,000 mg Documented by: Benzocaine/Menthol (Benzocaine/Menthol 20%-0.5% [place] 78 Gm Cannister) 78 gm TOP ASDIRECTED PRN PRN Reason: Perineal Comfort Measure Last Admin: 10/13/20 10:37 Dose: 78 gm Documented by: Bisacodyl (Bisacodyl 10 Mg Supp) 10 mg RECTAL ONETIME PRN PRN Reason: Constipation Butorphanol Tartrate (Butorphanol 1 Mg/Ml Sdv) 1 mg IVPUSH Q1H PRN PRN Reason: Pain (severe 7-10) Carboprost Tromethamine (Carboprost Tromethamine 250 Mcg/1 Ml Amp) 250 mcg IM ASDIRECTED PRN PRN Reason: Post Hemorrhage Docusate Sodium (Docusate Sodium 100 Mg Cap) 100 mg PO Q12H PRN PRN Reason: Constipation Last Admin: 10/14/20 07:30 Dose: 100 mg Documented by: Emollient Ointment (Lanolin 100% Cream 7 Gm Tube) 0 gm TOP ASDIRECTED PRN PRN Reason: Sore Nipples Last Admin: 10/13/20 21:00 Dose: 1 tube Documented by: Oxytocin/Sodium Chloride (Oxytocin 30 Unit/500 Ml-Ns) 30 unit in 500 mls @ 999 mls/hr IV TITRATE [facility] Last Admin: 10/13/20 08:43 Dose: 999 mls/hr Documented by: Tranexamic Acid 1,000 mg/ (Sodium Chloride) 110 mls @ 660 mls/hr IV ONETIME PRN PRN Reason: Bleeding Lactated Ringer's (Ringers, Lactated) 1,000 mls @ 150 mls/hr IV ASDIRECTED [facility] Last Admin: 10/13/20 06:25 Dose: 150 mls/hr Documented by: Ibuprofen (Ibuprofen 800 Mg Tab) 800 mg PO Q8H PRN PRN Reason: Pain (mild 1-3) Last Admin: 10/14/20 04:57 Dose: 800 mg Documented by: Lidocaine HCl (Lidocaine 1% 50 Ml Mdv) 50 ml INJECT ONETIME PRN PRN Reason: Laceration repair Last Admin: 10/13/20 08:45 Dose: 50 ml Documented by: Methylergonovine Maleate (Methylergonovine 0.2 Mg/1 Ml Amp) 0.2 mg IM ASDIRECTED PRN PRN Reason: Post Hemorrhage Misoprostol (Misoprostol 200 Mcg Tab) 200 mcg PO ONETIME PRN PRN Reason: Post Hemorrhage Nalbuphine HCl (Nalbuphine 10 Mg/1 Ml Vial) 10 mg IVPUSH Q1H PRN PRN Reason: Pain (severe 7-10) Last Admin: 10/13/20 06:25 Dose: 10 mg Documented by: Oxycodone HCl (Oxycodone 5 Mg Tab) 5 mg PO Q2H PRN PRN Reason: Pain (severe 7-10) Sodium Chloride (Sodium Chloride 0.9% 10 Ml Syringe) 10 ml FLUSH ASDIRECTED PRN PRN Reason: Keep Vein Open Sodium Chloride (Sodium Chloride 0.9% 2.5 Ml Syringe) 2.5 ml FLUSH ASDIRECTED PRN PRN Reason: Keep Vein Open Sodium Chloride (Sodium Chloride 0.9% 10 Ml Sdv) 10 ml IV ASDIRECTED PRN PRN Reason: IV Use Sterile Water (Water For Irrigation,Sterile 1,000 Ml Container) 1,000 ml IRR ASDIRECTED PRN PRN Reason: delivery Witch Armani (Witch Armani Medicated Pads 40/Jar) 1 pad TOP ASDIRECTED PRN PRN Reason: comfort care Last Admin: 10/13/20 10:38 Dose: 1 container Documented by: Discontinued Medications Measles/Mumps/Rubella Vaccine Live (Measles, Mumps & Rubella Vaccine 0.5 Ml Sdv) 0.5 ml SUBCUT .ONCE ONE Stop: 10/13/20 09:07 - Interaction Infant Disposition, : [place] in Room with Family Interaction: Holding Infant Infant Feeding: Attempted ; Nursed Fair/Poor, Continues to Breastfeed Support Person: - Recovery Exam Fundal Tone: Firm Fundal Level: 1 Fingerbreadths Below Umbilicus Fundal Placement: Midline Lochia Amount: Scant Lochia Color: Rubra/Red Other Perinuem Description: 2 degree laceration repaired Bladder Status: Voiding Urinary Elimination: Voided - Exam General: Alert, Oriented Neck: Supple Lungs: Normal Respiratory Effort GI/Abdominal Exam: Soft, Non-Tender, No Distention Extremities: No Pedal Edema Skin: Warm, Dry, Intact Neurological: No New Focal Deficit Psy/Mental Status: Alert, Normal Affect, Normal Mood - Problem List & Annotations (1) Vaginal delivery SNOMED Code(s): 452809673 Code(s): O80 - ENCOUNTER FOR FULL-TERM UNCOMPLICATED DELIVERY Status: Acute Current Visit: Yes (2) Gestational diabetes mellitus, diet-controlled SNOMED Code(s): 21499036, 735936711, 969205865 Code(s): O24.410 - GESTATIONAL DIABETES MELLITUS IN , DIET CONTROLLED Status: Acute Current Visit: Yes - Problem List Review Problem List Initiated/Reviewed/Updated: Yes - My Orders Last 24 Hours: My Active Orders 10/13/20 09:06 Patient Status [ADT] Routine May Shower [RC] ASDIRECTED Notify Provider Vital Signs [RC] ASDIRECTED Vital Signs [RC] PER UNIT ROUTINE Acetaminophen [Tylenol Extra Strength] 1,000 mg PO Q6H PRN Benzocaine/Menthol [Dermoplast Pain Relief 20%-0.5% [place]] 78 gm TOP ASDIRECTED PRN Docusate Sodium [Colace] 100 mg PO Q12H PRN Ibuprofen [Motrin] 800 mg PO Q8H PRN Lanolin [Lansinoh HPA] See Dose Instructions TOP ASDIRECTED PRN bisacodyL [Dulcolax] 10 mg RECTAL ONETIME PRN oxyCODONE 5 mg PO Q2H PRN witch Armani [Tucks] 1 pad TOP ASDIRECTED PRN Assess Lochia [WOMSER] Per Unit Routine Assess Uterine Involution [WOMSER] Per Unit Routine Breast Pump [WOMSER] Per Unit Routine Ice Therapy [OM.PC] Per Unit Routine Perineal Care [OM.PC] Per Unit Routine Peripheral IV Discontinue [OM.PC] Routine Sitz Bath [OM.PC] Per Unit Routine 10/13/20 Lunch Regular Diet [DIET] 10/14/20 08:29 Ready for Discharge [RC] PER UNIT ROUTINE - Assessment Assessment:: 30yo s/p at 40w3dm PPD#1 - Plan Plan:: Continue routine care. GDMA1, will get 2-hour GTT . Rh positive, Rubella non-immune (MMR ordered), GBS negative. Plan for circumcision today by Dr. Nicole. Plan discharge home today. Reviewed discharge instructions/precautions. All questions answered.
== END 2020-10-14 18:42 | disposition home or self-care (01) | DRG 560 ==
LOC: MW.OBCHECK 05:14 → MW.OB 05:17 → MW.OBCHECK 05:42 → MW.OB 05:42 → OBSVTOIN 09:06 → MW.OB 12:19
PROVIDERS: ADMIT Obstetrics & Gynecology; ATTEND Obstetrics & Gynecology
PROC: 10E0XZZ Delivery of Products of Conception, External Approach (ICD-10-PCS; principal; 2020-10-13)
PROC: 4A1HXCZ Monitoring of Products of Conception, Cardiac Rate, External Approach (ICD-10-PCS; 2020-10-13)
PROC: 0KQM0ZZ Repair Perineum Muscle, Open Approach (ICD-10-PCS; 2020-10-13)
DX: O24.420 Gestational diabetes mellitus in childbirth, diet controlled (principal); O48.0 Post-term pregnancy; Z37.0 Single live birth; O70.1 Second degree perineal laceration during delivery; Z3A.40 40 weeks gestation of pregnancy; Z20.822 Contact with and (suspected) exposure to COVID-19
CPT/HCPCS: 36415; 59025; 59409; 82947; 85014; 85018; 85027; 86592; 86850; 86900; 86901; A9270-GY; J2001; J2300; J2590; J7120; U0002

== ENCOUNTER 2022-05-18 18:24 | Inpatient (IN) | payer BC ==
[2022-05-18] MEDS ORDERED: Oxytocin/0.9 % Sodium Chloride 30 UNIT/500 ML BAG ONE (19:48)
[2022-05-18] MEDS ORDERED: Lidocaine 1% 50 ML MDV ONE (20:03)
[2022-05-18] MEDS ORDERED: Methylergonovine 0.2 MG/1 ML Amp IM PRN (20:18)
[2022-05-18] MEDS ORDERED: Docusate Sodium 100 MG Cap PO PRN (20:18)
[2022-05-18] MEDS ORDERED: Bisacodyl 10 MG Supp RECTAL PRN (20:18)
[2022-05-18] MEDS ORDERED: Oxytocin 10 Units/1 ML SDV IM PRN (20:18)
[2022-05-18] MEDS ORDERED: Sodium Chloride 0.9% 2.5 ML Syringe FLUSH PRN (20:18)
[2022-05-18] MEDS ORDERED: Ondansetron 4 MG/2 ML SDV IVPUSH PRN (20:18)
[2022-05-18] MEDS ORDERED: oxyCODONE 5 MG Tab PO PRN (20:18)
[2022-05-18] MEDS ORDERED: Sodium Chloride 0.9% 10 ML Syringe FLUSH PRN (20:18)
[2022-05-18] MEDS ORDERED: Acetaminophen 500 MG Tab PO PRN (20:18)
[2022-05-18] MEDS ORDERED: Ibuprofen 400 MG Tab PO PRN (20:18)
[2022-05-18] MEDS ORDERED: Benzocaine/Menthol 20%-0.5% Spray 78 GM Cannister TOP PRN (20:18)
[2022-05-18] MEDS ORDERED: Measles, Mumps & Rubella Vaccine 0.5 ML SDV SUBCUT ONE (20:18)
[2022-05-18] MEDS ORDERED: Carboprost Tromethamine 250 MCG/1 ML Amp IM PRN (20:18)
[2022-05-18] MEDS ORDERED: Misoprostol 200 MCG Tab RECTAL PRN (20:18)
[2022-05-18] MEDS ORDERED: Witch Hazel Medicated Pads 40/Jar TOP PRN (20:18)
[2022-05-18] MEDS ORDERED: Sodium Chloride 0.9% 20 ML SDV IV PRN (20:18)
[2022-05-18] MEDS ORDERED: Lanolin 100% Cream 7 GM Tube TOP PRN (20:18)
[2022-05-18] MEDS ORDERED: Tranexamic Acid 1,000 MG in Sodium Chloride 0.9% 100 ML IV PRN (20:18)
[2022-05-18] MEDS ORDERED: Sodium Chloride 0.9% 1,000 ML IV SCH (20:30)
[2022-05-18] MEDS: Acetaminophen 500 MG Tab PO PRN (21:14)
[2022-05-19] MEDS: Acetaminophen 500 MG Tab PO PRN ×2 (07:54→13:55)
[2022-05-19] MEDS: Ibuprofen 800 MG Tab PO PRN ×3 (07:54→23:11)
== END 2022-05-19 23:37 | disposition home or self-care (01) | DRG 560 ==
LOC: MW.OBCHECK 18:24 → MW.OB 18:25 → MW.OBCHECK 19:49 → MW.OB 19:49 → OBSVTOIN 19:50 → MW.OB 23:10
PROVIDERS: ADMIT Obstetrics & Gynecology; ATTEND Obstetrics & Gynecology
PROC: 10E0XZZ Delivery of Products of Conception, External Approach (ICD-10-PCS; principal; 2022-05-18)
PROC: 0HQ9XZZ Repair Perineum Skin, External Approach (ICD-10-PCS; 2022-05-18)
PROC: 3E0134Z Introduction of Serum, Toxoid and Vaccine into Subcutaneous Tissue, Percutaneous Approach (ICD-10-PCS; 2022-05-19)
DX: O62.3 Precipitate labor (principal); Z3A.39 39 weeks gestation of pregnancy; Z37.0 Single live birth; O70.0 First degree perineal laceration during delivery; Z20.822 Contact with and (suspected) exposure to COVID-19; Z23 Encounter for immunization
CPT/HCPCS: 36415; 85014; 85018; 85027; 86592; 86850; 86900; 86901; 90707; A9270-GY; J2001; J2590; U0002